=== PATIENT | male | born 1985 | race Two or more races ===

== ENCOUNTER 2019-05-28 15:59 | Emergency (ER) | payer OTHER ==
[~2019-05-28] VITALS: Ht 177.8 cm; Wt 90.7 kg
--- NOTE | 2019-05-28 16:20 | NUR ---
BIB ra c/o suicidal ideation with plan to run in to traffic. Patient a/ox4, breathing even and unlabored, belongings removed and placed in the locker, changed into gown, attached to the security monitor.
[2019-05-28 16:22] LABS: BASOPHILS # (AUTO) 0.1 /CMM (0.0-0.2); BASOPHILS % (AUTO) 0.7 % (0.0-2.0); EOSINOPHILS % (AUTO) 1.2 % (0.0-6.0); HEMATOCRIT 45 % (39-51); HEMOGLOBIN 15.1 g/dL (13.5-17.5); LYMPHOCYTES # (AUTO) 1.9 /CMM (0.8-4.8); LYMPHOCYTES % (AUTO) 25.1 % (20.0-44.0); MEAN CORPUSCULAR HGB CONC 34 g/dl (31.0-36.0); MEAN CORPUSCULAR VOLUME 87 fL (80-96); MONOCYTES # (AUTO) 0.5 /CMM (0.1-1.30); PLATELET COUNT (AUTO) 191 /CMM (150-450); RED BLOOD CELL COUNT(AUTO) 5.21 MIL/uL (4.5-6.0); WHITE BLOOD COUNT (AUTO) 7.6 K/uL (4.3-11.0)
[2019-05-28 16:39] LABS: ALANINE AMINOTRANSFERASE 20 U/L (12-78); ALBUMIN 3.8 g/dL (3.4-5.0); ALCOHOL, BLOOD < 3 mg/dL (0-0); ALKALINE PHOSPHATASE 88 U/L (46-116); ASPARTATE AMINOTRANSFERASE 16 U/L (15-37); BILIRUBIN,TOTAL 0.1 mg/dL (0.2-1.0); CARBON DIOXIDE 26 mmol/L (21-32); CHLORIDE 105 mmol/L (98-107); CREATININE 0.9 mg/dL (0.6-1.3); GLUCOSE 137 mg/dL (74-106); POTASSIUM 3.7 mmol/L (3.5-5.1); SODIUM SERUM 140 mmol/L (136-145); TOTAL PROTEIN, SERUM 7.6 g/dL (6.4-8.2); UREA NITROGEN, BLOOD 18 mg/dL (7-18)
--- NOTE | 2019-05-28 16:40 | NUR ---
Urine sample sent to lab.
[2019-05-28 16:41] LABS: ACETAMINOPHEN 0 ug/ml (10-30)
[2019-05-28 16:59] LABS: APPEARANCE,URINE Clear (CLEAR); BILIRUBIN,URINE Negative (NEGATIVE); BLOOD, URINE Trace-intact Ery/uL (NEGATIVE); COLOR,URINE Yellow (YELLOW); KETONES,URINE Negative (NEGATIVE); LEUKOCYTE ESTERASE ,URINE Negative (NEGATIVE); NITRITE, URINE Negative (NEGATIVE); PROTEIN,URINE Negative (NEGATIVE); UGLUCOSE Negative (NEGATIVE); UROBILINOGEN,URINE 0.2 EU/dL (0.2)
[2019-05-28 17:00] LABS: BACTERIA,URINE None seen /HPF (None Seen); RBC,URINE 0-2 /HPF (0-2); SQUAMOUS EPITHELIAL CELL,UR Few /HPF (None Seen); WBC,URINE 0-2 /HPF (0-3)
--- NOTE | 2019-05-28 17:37 | NUR ---
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
--- NOTE | 2019-05-28 18:12 | NUR ---
Patient is resting comfortably in bed with eyes closed. Easily aroused.
--- NOTE | 2019-05-28 18:31 | NUR ---
Nima robert in [facility] - 05/28/19 at 1839 by BOBY PATIENT COMPLETED 800 CC OF GASTROGRAFFIN. INFORMED RADIOLOGY.
--- NOTE | 2019-05-28 18:57 | NUR ---
PINKY AT BEDSIDE FOR EVAL.
--- NOTE | 2019-05-28 19:17 | NUR ---
ENDORSED TO BETHANIE LAZARO FOR YORDY.
--- NOTE | 2019-05-28 20:42 | NUR ---
Pt accepted to [facility] by Dr Case. # for report [phone] unit 2
--- NOTE | 2019-05-28 21:17 | NUR ---
report given to Evon at [facility] [place]
--- NOTE | 2019-05-28 21:27 | NUR ---
DERECK AUS TO [facility] ETA [id number]
[2019-05-28 22:08] VITALS: BP 117/63
--- NOTE | 2019-05-28 22:09 | NUR ---
pt was picked up by [facility].
== END 2019-05-28 22:10 ==
LOC: ER 16:05
DX: R45.851 Suicidal ideations (principal); F20.9 Schizophrenia, unspecified; F17.210 Nicotine dependence, cigarettes, uncomplicated
CPT/HCPCS: 36415; 80048; 80076; 80305; 80307; 80329; 81001; 85025; 99285; G0480; 81000-TC